=== PATIENT | male | born 1990 ===

== ENCOUNTER 2025-02-13 15:34 | Emergency (ER) | payer SELFPAY ==
[2025-02-13 15:59] VITALS: BP 147/89; PULSE 99; RESP 18; TEMP 36.4; O2SAT 100
[2025-02-13 16:40] LABS: Add Urine Microscopic? YES; Appearance Urine Clear (Clear); Bacteria Urine None Seen /hpf; Bilirubin Urine Negative (Negative); Blood Urine 2+ (Negative); Color Urine Yellow (Yellow); Glucose Urine UA Negative (Negative); Ketones Urine Negative (Negative); Leukocyte Esterase Ur Negative LEU/UL (Negative); Nitrate Urine Negative (Negative); Non Pathogenic Casts 0-2; Protein Urine Negative (Negative); RBC Urine 51-100 /hpf (0-2); Specific Grav Ur 1.014 (1.001-1.035); Squamous Epithelial Cell Urine None Seen /hpf (Few); Urobilinogen Urine 0.2 mg/dL (<2.0); WBC Urine 0-5 /hpf (0-3); pH Urine 6.5 (5.0-9.0)
--- NOTE | 2025-02-13 18:27 | PC.NURSE ---
Called out for pt with no answer, not seen in ED
--- OUTSIDE RECORDS SUMMARY | 2025-02-13 18:47 | XMS_ITS | Continuity of Care Document ---
Author Organization [facility] Address [address] [place] [address] Phone Care Team Providers Care Ems Educator Name Role Phone Nagi Shipman MD Unavailable Unavailable Medications Medication Instructions Dosage Effective Dates (start - stop) Status Comments omeprazole 40 mg capsule,delayed release take 1 capsule by oral route every day before a meal 40 MG - Active Procedures Procedure Date UPPER GI ENDOSCOPY BIOPSY Advance Directives Directive Yes / No Effective Date File Name No Information Encounters Encounter Description Practice Location Reason(s) For Visit Diagnoses Date Provider Providers Copied on Encounter [facility], [address], [place], [place], [id number], tel:[phone] [facility] No Information Umberto Lazar. [address] [place] [address], [id number] , . tel: [phone] [facility], [address], [place], [place], [id number], tel:[phone] [facility] Pain of upper abdomen Umberto Lazar. [address] [place] [address], [id number] , [place]. tel: [phone] [facility], [address], [place], [place], [id number], [place] tel:[phone] [facility] No Information Umberto Lazar. [address] [place] [address], [id number] , . tel: [phone] [facility], [address], [place], [place], [id number], [place] tel:[phone] [facility] No Information Umberto Lazar. [address] [facility], [address], [place], [place], [id number] , [place]. [phone] Referring Provider: Jony Alicea, [address] [facility] [address] [facility] [address], [place], [address]. tel:[phone] Family History Family Member Type Diagnosis Age At Onset No Information Payers Payer name Insurance type Covered republican ID Authoriza tion(s) No Information Social History Type Description Quantity Date Captured Comments Alcohol Use Details Unknown Caffeine Use Details Unknown Tobacco Use Status No Information Smoking Status No Information Sex Male Chief Complaint And Reason For Visit No Information Reason For Referral Reason For Referral No Information Plan Of Treatment Date Type Action Status Referral Ordered: RUQ US (right upper quadrant ultrasound) Appointment date/timeframe: 06/02/2019 ordered Future Order: Radiology Order RU Q US (right upper quadrant ultrasound) ([id number]), Sent on: Sent History Of Present Illness Encounter Date Complaint History Of Prese nt Illness No Information Functional Status Date Functional Assessmen t No Information Instructions Date Instruction Additional Infor mation No Information Assessments Type Assessment Date No Information Patient Care Teams Name Effective Dates (start - stop) Status Members No Information
== END 2025-02-13 18:27 | disposition left against medical advice (07) ==
PROVIDERS: Emergency Provider Emergency Medicine
DX: R10.9 Unspecified abdominal pain (principal)
CPT/HCPCS: 81001; 99199